=== PATIENT | female | born 2000 | race Caucasian/White ===

== ENCOUNTER 2018-12-22 19:00 | Emergency (ER) | payer SELFPAY, MEDICAID | END 2018-12-22 23:12 | disposition home or self-care (01) | LOC: FTE 19:00 | DX: S90.31XA Contusion of right foot, initial encounter (principal); W20.8XXA Other cause of strike by thrown, projected or falling object, initial encounter; Y92.89 Other specified places as the place of occurrence of the external cause | CPT/HCPCS: 73630; 99283-25 ==